=== PATIENT | female | born 1980 | race Caucasian/White ===

== ENCOUNTER → 2023-06-29 | Outpatient (CLI) | payer BC ==
--- NOTE | 2023-06-30 13:28 | MM ---
Reason for Exam: Screening (asymptomatic). Last screening mammogram was performed 12 month(s) ago. Patient History: Menarche at age 14. First Full-Term at age 28. Premenopausal. Risk Values: Michelle 5 year model risk: 0.7%. NCI Lifetime model risk: 10.0%. Prior Study Comparison: 03/08/2021 Bilateral MG 3D screening mammo w/cad, Unknown. 06/16/2022 Bilateral MG 3D screening mammo w/cad, Unknown. Tissue Density: The breasts are heterogeneously dense, which may obscure small masses. Findings: Analyzed By CAD. Right breast: There is no suspicious group of microcalcifications or new suspicious mass. Left breast: There is no suspicious group of microcalcifications or new suspicious mass. Overall Assessment: Negative, BI-RAD 1 Management: Screening Mammogram of both breasts in [address] [facility] will attempt to contact patient to return for supplemental views and ultrasound if indicated. Patient should continue monthly self-breast exams. A clinical breast exam by your physician is recommended on an annual basis. This exam should not preclude additional follow-up of suspicious palpable abnormalities. Note on Michelle scores and lifetime risk: 1. A Michelle score greater than 3% is considered moderate risk. If this is the case, consider specialist referral to assess eligibility for a risk reducing agent. 2. If overall lifetime risk for the development of breast cancer is 20% or higher, the patient may qualify for future screening with alternating mammogram and breast MRI. Electronically signed and approved by: Papi Tan DO
== END | disposition home or self-care (01) ==
LOC: RADMAMWWP 15:58
PROVIDERS: ATTEND Family Medicine
DX: Z12.31 Encounter for screening mammogram for malignant neoplasm of breast (principal)
CPT/HCPCS: 77063; 77067

== ENCOUNTER → 2023-10-11 | Outpatient (CLI) | payer BC ==
--- NOTE | 2023-10-11 09:24 | US ---
EXAMINATION TYPE: US transvaginal DATE OF EXAM: 10/11/2023 COMPARISON: NONE CLINICAL INDICATION: Female, 42 years old with history of N92.0 EXCESSIVE AND FREQUENT MENSTRUATION W ITH REG; Menorrhagia. . TECHNIQUE: Transvaginal (TV). Date of LMP: 09/24/2023 EXAM MEASUREMENTS: Uterus: 8.6 x 5.3 x 4.2 cm Endometrial Stripe: Limited, measured at 0.9 cm Right Ovary: 2.9 x 1.6 x 1.4 cm Left Ovary: 3.7 x 1.7 x 1.9 cm 1. Uterus: Anteverted Heterogeneous. *Complex fluid-appearing area in cervix: 0.8 x 0.3 x 0.3 cm. Additional subcentimeter anechoic area seen. 2. Endometrium: Limited visibility measured at 0.9 cm. 3. Right Ovary: Follicles seen. 4. Left Ovary: Complex area of mixed echogenicity seen measuring 1.9 x 1.1 x 1.3 cm. 5. Bilateral Adnexa: Free fluid seen in right adnexa: 1.3 x 1.1 x 0.3 cm. Prominent blood vessels seen in left adnexa measuring up to 7 mm. 6. Posterior cul-de-sac: Appears wnl IMPRESSION: 1. Heterogenous debris within the endometrium most compatible with blood products. 2. Appropriate Arterial and venous spectral waveforms to the ovaries.
== END | disposition home or self-care (01) ==
LOC: RADUSWWP 08:33
PROVIDERS: ATTEND Family Medicine
DX: N92.0 Excessive and frequent menstruation with regular cycle (principal)
CPT/HCPCS: 76830